=== PATIENT | female | born 1945 | race Caucasian/White ===

== ENCOUNTER → 2018-01-13 11:59 | Outpatient (CLI) | payer MEDICARE, OTHER, SELFPAY ==
--- NOTE | 2018-01-13 | DI.RAD.S_ITS ---
PROCEDURE: XR FOOT RT MIN 3V INDICATIONS: RIGHT FOREFOOT PAIN AFTER TRAUMA TECHNIQUE: 3 views of the foot were acquired. COMPARISON: [facility], CR, FOOT 3V RIGHT, 11/30/2011, 15:44. [facility], CR, FOOT 3V RIGHT, 10/22/2014, 12:52. [facility], CR, XR FOOT 3VW RT, 01/25/2015, 10:21. FINDINGS: Bones: On AP view, there is slight angulation deformity and underlying increased bone density at the medial neck of the third metatarsal, suspect for impaction injury. No other fractures or dislocations. No suspicious bony lesions. Mild joint space narrowing at the first tarsometatarsal and metatarsal phalangeal joints, unchanged. Soft tissues: No tibiotalar joint effusion. Achilles tendon appears normal. IMPRESSION: Possible impacted fracture third metatarsal neck for clinical correlation. Dictated by: Jean Paul Cordoba M.D. on 01/13/2018 at 13:04 Approved by: Jean Paul Cordoba M.D. on 01/13/2018 at 13:09
== END ==
PROVIDERS: Family Provider Family Medicine; PCP Family Medicine; Visit Provider Family Medicine
DX: M79.671 Pain in right foot (principal)
CPT/HCPCS: 73630

== ENCOUNTER → 2018-05-24 13:42 | Outpatient (CLI) | payer MEDICARE, OTHER, SELFPAY ==
--- NOTE | 2018-05-24 | DI.RAD.S_ITS ---
This blank DEXA report has been sent in error by the PACS system. The correct and complete report will be forthcoming in 1-2 days. Thank you for your patience and understanding. Dictated by: Rickie Nguyen M.D. on 05/24/2018 at 14:58 Approved by: Rickie Nguyen M.D. on 05/24/2018 at 14:58
== END ==
PROVIDERS: Family Provider Family Medicine; PCP Family Medicine; Visit Provider Family Medicine
DX: Z13.820 Encounter for screening for osteoporosis (principal); M81.0 Age-related osteoporosis without current pathological fracture; Z78.0 Asymptomatic menopausal state; E07.9 Disorder of thyroid, unspecified; Z82.62 Family history of osteoporosis
CPT/HCPCS: 77080

== ENCOUNTER → 2018-07-08 18:32 | Outpatient (REF) | payer MEDICARE, OTHER, SELFPAY | LOC: LAB 18:32 | PROVIDERS: Family Provider Family Medicine; PCP Family Medicine; Visit Provider Physician Assistant | DX: Z48.817 Encounter for surgical aftercare following surgery on the skin and subcutaneous tissue (principal) | CPT/HCPCS: 87070; 87075; 87205 ==

== ENCOUNTER → 2018-08-05 13:24 | Outpatient (CLI) | payer MEDICARE, OTHER, SELFPAY ==
--- NOTE | 2018-08-05 | DI.MG.S_ITS ---
BILATERAL DIGITAL SCREENING MAMMOGRAM 3D/2D WITH CAD: 08/05/2018 CLINICAL: Routine screening. Comparison is made to exams dated: 05/28/2017 mammogram, 04/30/2016 mammogram, and 04/08/2015 mammogram - [facility]. The tissue of both breasts is extremely dense, which lowers the sensitivity of mammography. Current study was also evaluated with a Computer Aided Detection (CAD) system. There are benign calcifications in the left breast. No significant masses, calcifications, or other findings are seen in either breast. There has been no significant interval change. IMPRESSION: There is no mammographic evidence of malignancy. A 1 year screening mammogram is recommended. This exam was interpreted at Station ID: [id number]. NOTE: For mammograms, a report in lay terms will be sent to the patient. Approximately 15% of breast malignancies will not be visualized mammographically. In the management of a palpable breast mass, a negative mammogram must not discourage biopsy of a clinically suspicious lesion. Electronically Signed By: Piotr esparza/charanjit:08/05/2018 15:56:39 letter sent: Normal Exam ACR BI-RADS Category 2: Benign Finding(s) 3342F
== END ==
PROVIDERS: PCP Family Medicine; Visit Provider Family Medicine
DX: Z12.31 Encounter for screening mammogram for malignant neoplasm of breast (principal)
CPT/HCPCS: 77063; 77067

== ENCOUNTER → 2018-12-19 11:49 | Outpatient (CLI) | payer MEDICARE, OTHER, SELFPAY ==
--- NOTE | 2018-12-19 | DI.US.S_ITS ---
PROCEDURE: US THYROID INDICATIONS: NONTOXIC MULTINODULAR GOITER TECHNIQUE: Real-time scanning was performed of the thyroid gland, with image documentation. COMPARISON: [facility], US, THYROID, 10/09/2015, 16:41. FINDINGS: Right: Right thyroidectomy. Right thyroid bed appears grossly normal. Left: Thyroid lobe measures 3.3 x 1.0 x 1.2 cm, and is homogenous in echotexture. Isthmus: 2.0 mm thick. Nodule number: 1 Location: Left mid Size: Unchanged at 0.3 x 0.2 x 0.4 cm. Composition: Cystic Echogenicity: Anechoic Shape: wider than tall. Margins: Smooth Echogenic foci: Comet tail artifact. Total points: 0 ACR TI-RADS category: Nodule number: 2 Location: Left mid lateral Size: Unchanged at 0.3 x 0.3 x 0.5 cm. Composition: Cystic Echogenicity: Anechoic Shape: wider than tall. 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 ACR TI-RADS definitions and recommendations: TI-RADS 1 (benign): 0 points. FNA not needed. TI-RADS 2 (not suspicious): 2 points. FNA not needed. TI-RADS 3 (mildly suspicious): 3 points. * FNA if 2.5 cm or larger, follow up if 1.5 cm or larger (at 1, 3, and 5 years). TI-RADS 4 (moderately suspicious): 4-6 points. * FNA if 1.5 cm or larger, follow up if 1 cm or larger (at 1, 2, 3, and 5 years). TI-RADS 5 (highly suspicious): 7 points or more. * FNA if 1 cm or larger, follow up if 0.5 cm or larger (every year for 5 years). Dictated by: Phoenix LEVY Interpreted: Mark Boston MD on 12/19/2018 at 13:06 Approved by: Mark Boston M.D. on 12/19/2018 at 17:17
== END ==
PROVIDERS: PCP Family Medicine; Visit Provider Internal Medicine Endocrinology, Diabetes & Metabolism
DX: E04.2 Nontoxic multinodular goiter (principal)
CPT/HCPCS: 76536

== ENCOUNTER → 2019-07-26 13:12 | Outpatient (CLI) | payer MEDICARE, OTHER, SELFPAY | PROVIDERS: PCP Family Medicine; Referring Provider Family Medicine; Visit Provider Family Medicine | DX: M81.0 Age-related osteoporosis without current pathological fracture (principal); Z78.0 Asymptomatic menopausal state; E07.9 Disorder of thyroid, unspecified; Z82.62 Family history of osteoporosis | CPT/HCPCS: 77080 ==

== ENCOUNTER → 2019-12-12 10:49 | Outpatient (CLI) | payer MEDICARE, OTHER, SELFPAY ==
--- NOTE | 2019-12-12 | DI.MG.S_ITS ---
BILATERAL DIGITAL SCREENING MAMMOGRAM 3D/2D WITH CAD: 12/12/2019 CLINICAL: Routine screening. Comparison is made to exams dated: 08/05/2018 mammogram, 04/30/2016 mammogram, 05/28/2017 mammogram, 04/08/2015 mammogram, 04/05/2014 mammogram, and 12/23/2012 mammogram - [facility]. The tissue of both breasts is extremely dense, which lowers the sensitivity of mammography. Current study was also evaluated with a Computer Aided Detection (CAD) system. There are benign calcifications in the left breast. No significant masses, calcifications, or other findings are seen in either breast. There has been no significant interval change. IMPRESSION: There is no mammographic evidence of malignancy. A 1 year screening mammogram is recommended. This exam was interpreted at Station ID: [id number]. NOTE: For mammograms, a report in lay terms will be sent to the patient. Approximately 15% of breast malignancies will not be visualized mammographically. In the management of a palpable breast mass, a negative mammogram must not discourage biopsy of a clinically suspicious lesion. Electronically Signed By: Boris davis/[email or web address]:12/12/2019 14:12:26 letter sent: Normal Exam ACR BI-RADS Category 2: Benign Finding(s) 3342F
== END ==
PROVIDERS: PCP Family Medicine; Referring Provider Family Medicine; Visit Provider Family Medicine
DX: Z12.31 Encounter for screening mammogram for malignant neoplasm of breast (principal)
CPT/HCPCS: 77063; 77067

== ENCOUNTER → 2020-07-09 12:46 | Outpatient (CLI) | payer MEDICARE, OTHER, SELFPAY ==
--- NOTE | 2020-07-09 12:55 | DI.CT.S_ITS ---
PROCEDURE: CT KIDNEY URETER BLADDER (KUB) INDICATIONS: HEMATURIA TECHNIQUE: Noncontrast 5 mm thick sections acquired from the diaphragms to the symphysis. 5 mm thick coronal and sagittal reformats were then performed. For radiation dose reduction, the following was used: automated exposure control, adjustment of mA and/or kV according to patient size. COMPARISON: None. FINDINGS: Image quality: Study is limited secondary to lack of intravenous and oral contrast as well as a paucity of intraperitoneal fat resulting in close apposition of soft tissue structures making anatomic delineation difficult. Lung bases: Lung bases are clear. Heart size is normal. Urinary system: Both kidneys are normal in size. No kidney stones. No hydronephrosis or perinephric fat stranding. Both ureters are difficult to visualize. No hydroureter noted. Bladder wall thickness is normal; no calcified bladder stones. Other solid organs: Liver is normal in size. Gallbladder is not definitively visualized and may be decompressed versus surgically absent. Pancreas is normal in contours. Spleen is normal in size. No adrenal nodules. Peritoneum and bowel: Unenhanced bowel loops are moderately decompressed and difficult to delineate within the lower abdomen and pelvis. Moderate amount of fecal material seen throughout the imaged colon and rectum. No evidence for bowel obstruction. Small amount of free fluid noted adjacent to the liver with trace amount of the pelvis. Nodes and vessels: There is a prominent retroperitoneal lymph node seen to the left of the aorta just distal to the origins of the bilateral renal vasculature. Aorta and inferior vena cava are normal in caliber. Scattered atherosclerotic calcifications of the abdominal aorta and iliac vessels without aneurysmal dilatation. Abdominal wall: No ventral hernias. Pelvis: Trace amount of pelvic free fluid. No inguinal hernias. No definite pelvice adenopathy. There is heterogeneous, ill-defined soft tissue density in the lower pelvis which is difficult to delineate given limitations described above. A uterus is not definitively visualized. Bones: No suspicious bony lesions. No acute vertebral body compression fractures. Moderate multilevel spondylitic changes seen throughout the imaged spine but most severe in the lower thoracic and thoracolumbar junction. IMPRESSION: 1. No evidence for obstructive uropathy or urolithiasis. 2. Heterogeneous, ill-defined soft tissue density within the pelvis which is difficult to delineate secondary to lack of intravenous contrast, oral contrast, and paucity of intraperitoneal fat. Findings may represent multiple decompressed loops of bowel that are in apposition to one another with possible pelvic or ovarian mass not completely excluded. The uterus is not definitively visualized within this region. Recommend correlation with past surgical history for hysterectomy. Given presence of a nonspecific, enlarged retroperitoneal lymph node and abdominal free fluid, consider further characterization with pelvic ultrasound. 3. Other chronic findings as above. Dictated by: Shiraz Carreon M.D. on 07/09/2020 at 16:50 Approved by: Shiraz Carreon M.D. on 07/09/2020 at 17:06
== END ==
PROVIDERS: PCP Family Medicine; Referring Provider Family Medicine; Visit Provider Family Medicine
DX: R31.9 Hematuria, unspecified (principal); R10.9 Unspecified abdominal pain; R59.0 Localized enlarged lymph nodes
CPT/HCPCS: 74176

== ENCOUNTER → 2020-07-12 12:43 | Outpatient (CLI) | payer MEDICARE, OTHER, SELFPAY ==
--- NOTE | 2020-07-12 | DI.US.S_ITS ---
PROCEDURE: US PELVIC COMPLETE INDICATIONS: Intra-abdominal and pelvic swelling, mass and lump, unspecif TECHNIQUE: Real-time scanning was performed of the pelvic organs, with image documentation. Additional endovaginal scanning was necessary due to incomplete visualization of the adnexal and endometrial structures by transabdominal scanning. COMPARISON: None. FINDINGS: Uterus: Uterus is normal in size at 2.3 x 3.2 x 5.1 cm, retroverted. The endometrium measures 5.3 mm in combined thickness. Ovaries: Normal appearing ovaries without evidence of torsion. The right ovary measures up to 1.9 cm and the left measures up to 2.4 cm. Other: No pathologic free abdominal or pelvic fluid. IMPRESSION: Patient declined transvaginal scanning. Retroverted uterus, no endometrial lining abnormality is seen. Ovaries visualized appear normal. No evidence of torsion. Somewhat limited evaluation of the pelvis due to overlying bowel gas. Follow-up by pelvic MRI with contrast would be recommended if clinical concerns persist. Dictated by: Mark Boston M.D. on 07/12/2020 at 13:48 Approved by: Mark Boston M.D. on 07/12/2020 at 13:50
== END ==
PROVIDERS: PCP Family Medicine; Referring Provider Family Medicine; Visit Provider Family Medicine
DX: R19.00 Intra-abdominal and pelvic swelling, mass and lump, unspecified site (principal); N85.4 Malposition of uterus
CPT/HCPCS: 76856

== ENCOUNTER → 2020-08-20 09:38 | Outpatient (CLI) | payer MEDICARE, OTHER, SELFPAY ==
--- NOTE | 2020-08-20 09:39 | DI.CT.S_ITS ---
PROCEDURE: CT ABDOMEN PELVIS W CON INDICATIONS: Unspecified abdominal pain TECHNIQUE: After the administration of oral and intravenous contrast, 5 mm thick sections acquired from the diaphragms to the symphysis. 5 mm thick coronal and sagittal reformats were performed. For radiation dose reduction, the following was used: automated exposure control, adjustment of mA and/or kV according to patient size. COMPARISON: [facility], CT, CT KIDNEY URETER BLADDER (KUB), 07/09/2020, 12:57. FINDINGS: Image quality: Excellent. ABDOMEN: Lung bases: Lung bases are clear. Heart size is normal. Solid organs: Liver is normal in size and enhancement. A probable normal gallbladder is seen. Biliary system is non-dilated. Pancreas enhances normally. Spleen is normal in size and enhancement. No adrenal nodules. Kidneys are normal in size and enhancement, without hydronephrosis. Peritoneum and bowel: Stomach, and small bowel are unremarkable. There is diffuse thickening of the wall of the rectum and sigmoid. There is a large amount of fecal debris more proximally. Nodes and vessels: No retroperitoneal or mesenteric adenopathy. Shotty periaortic lymph nodes. Aorta and inferior vena cava are normal in caliber. Miscellaneous: No ventral hernias. PELVIS: Genitourinary: Bladder wall thickness is normal. Miscellaneous: No inguinal hernias or adenopathy. Uterus is diffusely atrophied, retroverted. Bones: No suspicious bony lesions. No vertebral body compression fractures. At least moderate bilateral hip degenerative arthritis. IMPRESSION: 1. Uterus is diffusely atrophied. 2. Diffuse wall thickening of the sigmoid and rectum, of uncertain etiology. Consider infectious versus inflammatory colitis. Dictated by: oBbby Miller M.D. on 08/20/2020 at 11:38 Approved by: Bobby Miller M.D. on 08/20/2020 at 11:47
== END ==
PROVIDERS: PCP Family Medicine; Referring Provider Family Medicine; Visit Provider Family Medicine
DX: R19.00 Intra-abdominal and pelvic swelling, mass and lump, unspecified site (principal); N85.8 Other specified noninflammatory disorders of uterus; R31.21 Asymptomatic microscopic hematuria; R10.9 Unspecified abdominal pain; M16.0 Bilateral primary osteoarthritis of hip
CPT/HCPCS: 74177; Q9967

== ENCOUNTER → 2020-09-16 09:55 | Outpatient (CLI) | payer MEDICARE, OTHER, SELFPAY ==
[2020-09-16 17:54] LABS: COVID19 -Nasal RAPID Negative (Negative)
== END ==
PROVIDERS: PCP Family Medicine; Visit Provider Surgery
DX: Z20.822 Contact with and (suspected) exposure to COVID-19 (principal)
CPT/HCPCS: 87635; C9803

== ENCOUNTER 2020-09-17 12:08 | Day surgery (SDC) | payer MEDICARE, OTHER, SELFPAY ==
--- NOTE | 2020-09-17 | PATH_ITS ---
[facility] Accession Number: [id number] . 01 Material submitted: . rectum - RECTAL MUCOSA RANDOM . 02 Diagnosis: Rectum, Random Biopsies: Rectal mucosa with no diagnostic abnormality. Negative for active, chronic and microscopic colitis. Negative for dysplasia and malignancy. MRV 09/20/2020 1233 Local . 02 Electronically signed: . Sara Rausch MD, Pathologist NPI- [id number] . 01 Gross description: . RECTAL MUCOSA RANDOM: Received in formalin is 1 fragment(s) of miller, soft tissue measuring 0.1 x 0.1 x 0.1 cm submitted entirely in 1 cassette(s) /YOLANDA 09/18/2020 2153 Local . 02 Pathologist provided ICD-10: K62.89 . 02 CPT . 366839 Performed at: 01 [facility] [address] [id number] MD Piotr Bar MD Phone: [phone] Performed at: 02 [facility] [address] [place], [place] [id number] MD Sara Rausch MD Phone: [phone]
[2020-09-17 12:38] VITALS: BP 109/59; PULSE 67; RESP 12; TEMP 36.8; O2SAT 98; BMI 21.4
[2020-09-17] MEDS: SODIUM CHLORIDE 0.9% 1,000 ML 200 ML IV ×2 (12:38→13:30)
--- NOTE | 2020-09-17 12:58 | PM.PREOP ---
Pre-operative Note COVID-19 COVID-19 status: Negative Result date/Date tested (Pos, Neg/Pending): 09/13/20 Interval Note History & Physical reviewed/Exam performed by Physician: Yes Changes to H&P: No ASA Class (for procedural sedation): II
[2020-09-17] MEDS: fentaNYL 250 MCG/5 ML INJ IV (13:32)
[2020-09-17] MEDS: MIDAZOLAM 5 MG/5 ML VIAL IV (13:32)
--- NOTE | 2020-09-17 13:34 | P.OP.ENDO_ITS ---
Operative Date/Time/Diagnoses Date of procedure: 09/17/20 Time of procedure: 13:34 Pre-op diagnosis: Abnormal CT scan Post-op diagnosis: other (Very tortuous colon with many folds of mucosa, but no neoplastic, infectious, or ischemic appearance.) Procedure & Clinicians Study performed: Colonoscopy Procedural sedation performed by the endoscopist Random biopsies of rectosigmoid colon with standard forceps Same procedure as scheduled: Yes Indications: This patient had a CT scan for abdominal pain, which was read as thickening of the rectum and sigmoid colon. Surgeon: Karolina Coronel Procedure Notes SCOAP/Timeout: Performed Procedure in detail: The patient was brought to the room and placed in left lateral decubitus position with all bony prominences padded. A time-out was performed and then the patient was given procedural sedation starting with 2 mg of Versed and [100] mcg of fentanyl. A total of 5 mg of Versed and 175 micro g of fentanyl were given for the entire procedure. Vitals were monitored throughout the procedure and remained stable. Once adequately sedated, the procedure was begun. A rectal exam was performed revealing [no abnormalities]. The colonoscope was then introduced to the rectum and advanced to the cecum in the usual fashion. The colon was very tortuous, with many mucosal folds. Multiple maneuvers were required in order to reach the cecum safely including using the stiffener, and anterior pressure on the abdominal wall. []The cecum was identified by the appendiceal orifice, the mucosal tri-fold, and the ileocecal valve. The scope was then retracted while rotating side to side and examining each mucosal fold. No abnormalities were seen in the colon, other than in extreme tortuosity with many mucosal folds. When the colon was distended with air, there was no sign of abnormal thickening, ischemia, or colitis. Reason biopsies were taken of the rectus sigmoid colon to verify there was no microscopic colitis present. These were sent to pathology. [] At the conclusion of the proceduresmall grade 1-2 internal hemorrhoids without stigmata of bleeding were seen. The scope was then withdrawn from the rectum the procedure was concluded. The patient tolerated the procedure well and was transferred to the PACU in stable condition. Scope withdrawal time: 10 Sedation minutes: 30 Findings: other findings (Very tortuous colon with many mucosal folds, normal variant) Specimen(s): other (Random biopsies of rectosigmoid colon) Complications: none Impression: Very tortuous colon with many mucosal folds, a normal variant. No signs of abnormal thickening of the rectum or sigmoid colon. Specifically no signs of neoplasm, ischemia, or infection. Post-procedure Recommendations: Colonscopy in 10 years (If patient is healthy enough for col onoscopy at that time) and Other recommendation (We will send biopsy results to the patient, and call her if anything concerning is found.) Follow up: as needed Disposition: PACU
[2020-09-17] MEDS: ONDANSETRON 4 MG/2 ML INJ IV (13:36)
[2020-09-17 13:40] VITALS: BP 109/49; PULSE 60; RESP 14; TEMP 36.6; O2SAT 99
[2020-09-17 13:45] VITALS: BP 100/48; PULSE 62; RESP 16; O2SAT 99
[2020-09-17 13:50] VITALS: BP 107/46; PULSE 60; RESP 12; O2SAT 99
[2020-09-17 13:55] VITALS: BP 116/53; PULSE 70; RESP 12; O2SAT 99
[2020-09-17 14:00] VITALS: BP 104/53; PULSE 63; RESP 12; TEMP 36.7; O2SAT 99
== END 2020-09-17 14:18 | disposition home or self-care (01) ==
PROVIDERS: PCP Family Medicine; Referring Provider Surgery; Visit Provider Surgery
PROC: 0DJD8ZZ Inspection of Lower Intestinal Tract, Via Natural or Artificial Opening Endoscopic (ICD-10-PCS; CPT 45378; principal; 2020-09-17 13:00)
DX: K64.1 Second degree hemorrhoids (principal); E03.9 Hypothyroidism, unspecified
CPT/HCPCS: 45380; 99152; 99153; J2250; J2405; J3010

== ENCOUNTER → 2021-01-20 11:17 | Outpatient (CLI) | payer MEDICARE, OTHER, SELFPAY ==
--- NOTE | 2021-01-20 | DI.MG.S_ITS ---
BILATERAL DIGITAL SCREENING MAMMOGRAM 3D/2D WITH CAD: 01/20/2021 CLINICAL: Routine screening. Comparison is made to exams dated: 12/12/2019 mammogram, 08/05/2018 mammogram, 05/28/2017 mammogram, and 04/30/2016 mammogram - [facility]. The tissue of both breasts is extremely dense, which lowers the sensitivity of mammography. Current study was also evaluated with a Computer Aided Detection (CAD) system. There are benign calcifications in the left breast. No significant masses, calcifications, or other findings are seen in either breast. There has been no significant interval change. IMPRESSION: BENIGN There is no mammographic evidence of malignancy. A 1 year screening mammogram is recommended. This exam was interpreted at Station ID: [id number]. NOTE: For mammograms, a report in lay terms will be sent to the patient. Approximately 15% of breast malignancies will not be visualized mammographically. In the management of a palpable breast mass, a negative mammogram must not discourage biopsy of a clinically suspicious lesion. Electronically Signed By: Shiraz peters/charanjit:01/20/2021 12:25:44 letter sent: Normal Exam ACR BI-RADS Category 2: Benign Finding(s) 3342F
== END ==
PROVIDERS: PCP Family Medicine; Referring Provider Family Medicine; Visit Provider Family Medicine
DX: Z12.31 Encounter for screening mammogram for malignant neoplasm of breast (principal)
CPT/HCPCS: 77063; 77067

== ENCOUNTER → 2021-08-06 14:05 | Outpatient (CLI) | payer MEDICARE, OTHER, SELFPAY ==
--- NOTE | 2021-08-06 14:06 | DI.RAD.S_ITS ---
PROCEDURE: XR FOOT RT MIN 3V INDICATIONS: BILATERAL FOOT PAIN TECHNIQUE: 3 views of the foot were acquired. COMPARISON: [facility], , XR FOOT RT MIN 3V, 01/13/2018, 11:57. FINDINGS: Bones: No acute fractures or dislocations. Osteoarthritic changes are noted throughout right foot more prominent in right great toe and talonavicular joint. No suspicious bony lesions. Soft tissues: No tibiotalar joint effusion. Achilles tendon appears normal. IMPRESSION: Osteoarthritis throughout right foot. No acute fracture or dislocation. No suspicious intraosseous lesion. Dictated by: Rickie Nguyen M.D. on 08/06/2021 at 14:36 Approved by: Rickie Nguyen M.D. on 08/06/2021 at 14:37
--- NOTE | 2021-08-06 14:06 | DI.RAD.S_ITS ---
PROCEDURE: XR FOOT LT MIN 3V INDICATIONS: BILATERAL FOOT PAIN TECHNIQUE: 3 views of the foot were acquired. COMPARISON: [facility], CR, XR FOOT RT MIN 3V, 01/13/2018, 11:57. FINDINGS: Bones: No fractures or dislocations. Mild left hallux valgus is seen. Mild to moderate left foot joint osteoarthritic changes are seen most prominent at 1st MTP joint and 1st interphalangeal joint. No suspicious bony lesions. Soft tissues: No tibiotalar joint effusion. Achilles tendon appears normal. IMPRESSION: Ujik-ke-ixasvnfs left foot joint osteoarthritis and mild left-sided hallux valgus. No fracture or dislocation. Dictated by: Rickie Nguyen M.D. on 08/06/2021 at 14:37 Approved by: Rickie Nguyen M.D. on 08/06/2021 at 14:40
== END ==
PROVIDERS: PCP Family Medicine; Referring Provider Family Medicine; Visit Provider Family Medicine
DX: M19.072 Primary osteoarthritis, left ankle and foot (principal); M19.071 Primary osteoarthritis, right ankle and foot; M20.12 Hallux valgus (acquired), left foot; M79.672 Pain in left foot; M79.671 Pain in right foot
CPT/HCPCS: 73630

== ENCOUNTER → 2021-09-05 10:51 | Outpatient (CLI) | payer MEDICARE, OTHER, SELFPAY | PROVIDERS: PCP Family Medicine; Referring Provider Family Medicine; Visit Provider Family Medicine | DX: Z78.0 Asymptomatic menopausal state (principal); M81.0 Age-related osteoporosis without current pathological fracture | CPT/HCPCS: 77080 ==

== ENCOUNTER → 2021-11-12 16:02 | Outpatient (CLI) | payer MEDICARE, OTHER, SELFPAY ==
--- NOTE | 2021-11-12 16:05 | DI.RAD.S_ITS ---
PROCEDURE: XR CHEST 2V INDICATIONS: Acute cough TECHNIQUE: 2 views of the chest were acquired. COMPARISON: [facility], , CHEST 1 VIEW, 04/20/2016, 14:00. FINDINGS: Surgical changes and devices: None. Lungs and pleura: Lungs are clear. No pleural effusions or pneumothorax. Mediastinum: Mediastinal contours are normal. Heart size is normal. Bones and chest wall: No suspicious bony abnormalities. Soft tissues appear unremarkable. IMPRESSION: No acute cardiopulmonary disease. Dictated by: Phoenix Stone [facility] Interpreted: Rickie Nguyen MD on 11/12/2021 at 16:33 Transcribed by: THOMAS on 11/12/2021 at 16:34 Approved by: Rickie Nguyen M.D. on 11/12/2021 at 17:33
== END ==
PROVIDERS: PCP Family Medicine; Referring Provider Internal Medicine; Visit Provider Internal Medicine
DX: R05.1 Acute cough (principal)
CPT/HCPCS: 71046

== ENCOUNTER → 2022-03-05 14:05 | Outpatient (CLI) | payer MEDICARE, OTHER, SELFPAY ==
--- NOTE | 2022-03-05 14:07 | DI.MG.S_ITS ---
BILATERAL DIGITAL SCREENING MAMMOGRAM 3D/2D WITH CAD: 03/05/2022 CLINICAL: Routine screening. Comparison is made to exams dated: 01/20/2021 mammogram, 12/12/2019 mammogram, and 08/05/2018 mammogram - [facility]. Both breasts are extremely dense, which lowers the sensitivity of mammography (category d />75% glandular tissue). Current study was also evaluated with a Computer Aided Detection (CAD) system. There are benign calcifications in the left breast. No significant masses, calcifications, or other findings are seen in either breast. There has been no significant interval change. IMPRESSION: BENIGN There is no mammographic evidence of malignancy. A 1 year screening mammogram is recommended. Based on the Tyrer Cuzick model (a risk assessment model) the patient's lifetime risk is 10.4% and her 10 year risk is 9.4%. According to the ACR, ACS, and NCCN guidelines, an annual breast MRI exam along with mammogram is recommended if the patient's lifetime risk is 20% or greater. This exam was interpreted at Station ID: [id number]. NOTE: For mammograms, a report in lay terms will be sent to the patient. Approximately 15% of breast malignancies will not be visualized mammographically. In the management of a palpable breast mass, a negative mammogram must not discourage biopsy of a clinically suspicious lesion. Electronically Signed By: Shiraz peters/charanjit:03/05/2022 17:06:16 letter sent: Normal Exam ACR BI-RADS Category 2: Benign Finding(s) 3342F
== END ==
PROVIDERS: PCP Family Medicine; Referring Provider Family Medicine; Visit Provider Family Medicine
DX: Z12.31 Encounter for screening mammogram for malignant neoplasm of breast (principal)
CPT/HCPCS: 77063; 77067

== ENCOUNTER → 2022-07-13 20:02 | Outpatient (ROUT) | payer MEDICARE, OTHER, SELFPAY | PROVIDERS: PCP Family Medicine; Visit Provider Family Medicine | DX: B37.32 Chronic candidiasis of vulva and vagina (principal) | CPT/HCPCS: 87070; 87077; 87205 ==

== ENCOUNTER → 2022-09-14 12:53 | Outpatient (CLI) | payer MEDICARE, OTHER, SELFPAY ==
[2022-09-15 13:53] LABS: Candida species Negative (Negative); Gardnerella vaginalis Negative (Negative); Trichomoas vaginalis Negative (Negative)
== END ==
PROVIDERS: PCP Family Medicine; Visit Provider Physician Assistant Medical
DX: N89.8 Other specified noninflammatory disorders of vagina (principal)
CPT/HCPCS: 87480; 87510; 87660

== ENCOUNTER → 2022-10-29 13:59 | Outpatient (CLI) | payer MEDICARE, OTHER, SELFPAY ==
[2022-10-31 13:43] LABS: Candida species Negative (Negative); Gardnerella vaginalis Negative (Negative); Trichomoas vaginalis Negative (Negative)
== END ==
PROVIDERS: PCP Family Medicine; Visit Provider Physician Assistant Medical
DX: N89.8 Other specified noninflammatory disorders of vagina (principal)
CPT/HCPCS: 87480; 87510; 87660

== ENCOUNTER → 2022-12-26 11:50 | Outpatient (CLI) | payer MEDICARE, OTHER, SELFPAY | PROVIDERS: PCP Family Medicine; Visit Provider Physician Assistant | DX: N39.0 Urinary tract infection, site not specified (principal); N89.8 Other specified noninflammatory disorders of vagina | CPT/HCPCS: 87086; 87210 ==

== ENCOUNTER → 2023-04-13 11:31 | Outpatient (CLI) | payer MEDICARE, OTHER, SELFPAY ==
--- NOTE | 2023-04-13 | DI.MG.S_ITS ---
BILATERAL DIGITAL SCREENING MAMMOGRAM 3D/2D WITH CAD: 04/13/2023 CLINICAL: Routine screening. Comparison is made to exams dated: 03/05/2022 mammogram, 01/20/2021 mammogram, and 12/12/2019 mammogram - [facility]. Both breasts are extremely dense, which lowers the sensitivity of mammography (category d />75% glandular tissue). Current study was also evaluated with a Computer Aided Detection (CAD) system. There is an oval focal asymmetry in the right breast at 12 o'clock middle depth. This is more prominent. There is architectural distortion associated with the focal asymmetry. No other significant masses, calcifications, or other findings are seen in either breast. IMPRESSION: INCOMPLETE: NEEDS ADDITIONAL IMAGING EVALUATION The oval focal asymmetry in the right breast is indeterminate. Additional views with possible ultrasound are recommended. Based on the Tyrer Cuzick model (a risk assessment model) the patient's lifetime risk is 9.6% and her 10 year risk is 9.6%. According to the ACR, ACS, and NCCN guidelines, an annual breast MRI exam along with mammogram is recommended if the patient's lifetime risk is 20% or greater. This exam was interpreted at Station ID: [id number]. NOTE: For mammograms, a report in lay terms will be sent to the patient. Approximately 15% of breast malignancies will not be visualized mammographically. In the management of a palpable breast mass, a negative mammogram must not discourage biopsy of a clinically suspicious lesion. Electronically Signed By: Alf martines/charanjit:04/13/2023 13:36:44 letter sent: Additional Imaging Needed ACR BI-RADS Category 0: Incomplete 3340F
== END ==
PROVIDERS: PCP Family Medicine; Referring Provider Family Medicine; Visit Provider Family Medicine
DX: Z12.31 Encounter for screening mammogram for malignant neoplasm of breast (principal)
CPT/HCPCS: 77063; 77067

== ENCOUNTER → 2023-05-04 10:23 | Outpatient (CLI) | payer MEDICARE, OTHER, SELFPAY ==
--- NOTE | 2023-05-04 | DI.MG.S_ITS ---
UNILATERAL RIGHT DIGITAL DIAGNOSTIC MAMMOGRAM 3D/2D WITH ADDITIONAL VIEWS: 05/04/2023 CLINICAL: Additional evaluation requested from prior study. Comparison is made to exams dated: 04/13/2023 mammogram, 03/05/2022 mammogram, and 01/20/2021 mammogram - [facility]. The right breast is extremely dense, which lowers the sensitivity of mammography (category d />75% glandular tissue). The benign oval focal asymmetry in the right breast at 12 o'clock middle depth is no longer seen. This is not seen in additional views. There is architectural distortion associated with the focal asymmetry. No other significant masses or calcifications are seen in the breast. IMPRESSION: BENIGN There is no mammographic evidence of malignancy. Return to annual mammogram screening schedule is recommended. Based on the Tyrer Cuzick model (a risk assessment model) the patient's lifetime risk is 9.6% and her 10 year risk is 9.6%. According to the ACR, ACS, and NCCN guidelines, an annual breast MRI exam along with mammogram is recommended if the patient's lifetime risk is 20% or greater. This exam was interpreted at Station ID: [id number]. NOTE: For mammograms, a report in lay terms will be sent to the patient. Approximately 15% of breast malignancies will not be visualized mammographically. In the management of a palpable breast mass, a negative mammogram must not discourage biopsy of a clinically suspicious lesion. Electronically Signed By: Zain Gale M.D. acr/:05/04/2023 10:52:10 letter sent: Normal Exam ACR BI-RADS Category 2: Benign Finding(s) [id number]
== END ==
PROVIDERS: PCP Family Medicine; Referring Provider Family Medicine; Visit Provider Family Medicine
DX: R92.8 Other abnormal and inconclusive findings on diagnostic imaging of breast (principal)
CPT/HCPCS: 77065; G0279

== ENCOUNTER → 2023-05-11 09:50 | Outpatient (CLI) | payer MEDICARE, OTHER, SELFPAY ==
--- NOTE | 2023-05-11 | DI.NM.S_ITS ---
PROCEDURE: NM SANDRA PERF SPECT REST & STR Rest and exercise myocardial perfusion SPECT with gated imaging and ejection fraction RADIOPHARMACEUTICAL: 9.7 mCi Tc-99m sestamibi IV at rest and 25.2 mCi Tc-99m sestamibi IV at peak exercise. A one day-protocol was performed. INDICATIONS: Other chest pain TECHNIQUE: Radiopharmaceutical was injected at peak stress test, and also at rest. SPECT images were obtained. SPECT myocardial perfusion images were displayed in short axis, horizontal long axis, and vertical long axis views. Gated images were reviewed using MimetasQUANT software. COMPARISON: None. CARDIAC STRESS: A standard Shahid treadmill exercise tolerance test was performed by the patient under the supervision of an attending staff. The patient exercised for 9 minutes and 0 seconds; functional aerobic impairment (CELESTE) is -67% (10.1 METs). Hemodynamic data: There is normal blood pressure and heart rate response to exercise stress. Patient achieved 92% of maximum predicted heart rate at peak exercise. Symptoms: Patient denied chest pain during exercise. EKG: Resting ECG showed sinus rhythm with no ST changes. There were very mild horizontal ST depressions in the inferior and anterolateral leads during recovery; no ectopy. FINDINGS: Raw data: There is good myocardial labeling by radiotracer. No significant motion artifacts. Left ventricle function: Gated images demonstrate normal left ventricle wall thickening. No segmental wall motion abnormality. No transient ischemic dilation; TID is 1.12 (normal less than 1.3). The left ventricle resting end-diastolic volume is 72 mL. Left ventricle stress ejection fraction is 84%; normal values are above 45%. Myocardial perfusion: There is normal distribution of activity in the left and right ventricular myocardium. No fixed or reversible perfusion defects. IMPRESSION: Low risk, normal treadmill nuclear stress test from inducible ischemia standpoint. 1) No perfusion evidence of ischemia or infarction. 2) Normal left ventricular size, wall motion, and systolic function (EF post stress 84%). 3) Very mild horizontal ST depressions in the inferior and anterolateral leads during recovery. These changes are non-diagnostic in the setting of reassuring perfusion images. 4) No angina during the study. 5) Outstanding exercise tolerance (10.1METs, CELESTE -67%). Target heart rate achieved. Appropriate BP response to exercise. 6) No prior nuclear stress test available for comparison. Dictated by: Hesham Avery MD on 05/11/2023 at 16:49 Approved by: Hesham Avery MD on 05/11/2023 at 16:52
--- NOTE | 2023-05-11 | DI.ECHO.S_ITS ---
[facility] +---------+ : : [address] : [address] [address] : : : : [id number] : : : : Phone: [phone]+ Echocardiogram Report + + :Name: NEEL QUIROGA Study Date: 05/11/2023 Height: 64 in : :[facility] ReadingLocation: Weight: 118 lb : : Gender: Female BSA: 1.6 m2 : :: 1945 Age: 77 yrs BP: 120/66 mmHg: :Reason For Study: CHEST PAIN : :Ordering Physician: ARTURO, : :RYANNE Performed By: Renetta Antonio : :Referring: RYANNE MORRIS : + + Interpretation Summary The ejection fraction is estimated to be 60-65%. Diastolic parameters suggest probable normal left ventricular diastolic function and normal filling pressures. The right ventricle is normal in size and function. There is mild mitral regurgitation. There is trace aortic regurgitation. Pulmonary artery pressures cannot be estimated because of the lack of a measurable TR jet velocity but the IVC suggests a CVP of around 8 mmHg. There is a trivial pericardial effusion noted. Procedure: A two-dimensional transthoracic echocardiogram with color flow and Doppler was performed. The study quality was technically adequate. There is no prior echocardiogram noted for this patient. The patient was in sinus rhythm with heart rates between 55-67 bpm during the exam. Left Ventricle: The left ventricle is normal in size and wall thickness. The ejection fraction is estimated to be 60-65%. Diastolic parameters suggest probable normal left ventricular diastolic function and normal filling pressures. Right Ventricle: The right ventricle is normal in size and function. Atria: The left atrial size is normal. Right atrial size is normal. There is no Doppler evidence for an interatrial shunt. Mitral Valve: The mitral valve leaflets appear mildly thickened, but open well. There is mild mitral regurgitation. Aortic Valve: The aortic valve is trileaflet. The aortic valve opens well. There is no aortic valve stenosis. There is trace aortic regurgitation. Tricuspid Valve: The tricuspid valve is normal in structure and function. There is trace tricuspid regurgitation. Pulmonary artery pressures cannot be estimated because of the lack of a measurable TR jet velocity but the IVC suggests a CVP of around 8 mmHg. Pulmonic Valve: The pulmonic valve is not well visualized. There is no pulmonic valvular regurgitation. Great Vessels: The aortic root is normal size. The ascending aorta could not be visualized. The IVC is dilated (diameter is greater than 2.1 cm) yet it collapses greater than 50% with a sniff. This suggests a right atrial pressure of 8 mm Hg. Pericardium/ Pleura There is a trivial pericardial effusion noted. There is no pleural effusion. MMode/2D Measurements & Calculations LVIDd: 4.8 cm LVOT diam: 2.0 cm LVIDs: 3.2 cm Ao root diam: 2.9 cm FS: 31.9 % Ao Arch Diam (Prox Trans): 2.3 cm IVSd: 0.47 cm LVPWd: 0.74 cm LV gonzalez. diameter/BSA (cm/m^2): 3.0 LV sys. diameter/BSA (cm/m^2): 2.1 LA A2 area: 15.1 cm2 RA long axis: 3.9 cm LA A4 area: 10.5 cm2 RA area: 11.6 cm2 LA length (vol): 3.7 cm RA vol: 29.0 ml LA vol: 36.2 ml RA : 18.6 ml/m2 LA vol index: 23.2 ml/m2 IVC diam: 2.5 cm RVD1 (basal): 2.6 cm TAPSE: 2.1 cm Doppler Measurements & Calculations Ao V2 max: 136.8 cm/sec LVOT Max Fabio: 122.3 cm/sec Ao V2 mean: 96.9 cm/sec LV V1 max P.0 mmHg Ao max P.5 mmHg LV V1 VTI: 29.2 cm Ao mean P.2 mmHg ELIZABETH(I,D): 2.6 cm2 Ao V2 VTI: 34.3 cm ELIZABETH(V,D): 2.7 cm2 sev ratio: 0.85 ELIZABETH indexed to BSA (cm^2/m^2): 1.6 MV E max fabio: 87.3 cm/sec TR max fabio: 241.2 cm/sec MV A max fabio: 68.0 cm/sec TR max P.3 mmHg MV E/A: 1.3 PA V2 max: 93.1 cm/sec Med Peak E' Fabio: 11.0 cm/sec PA V2 mean: 62.2 cm/sec E/E' med: 7.9 PA mean P.8 mmHg Lat Peak E' Fabio: 10.0 cm/sec E/E' lat: 8.8 E/e' average: 8.3 MV dec time: 0.22 sec SVLVOT): 87.7 ml Reading Physician:03:38 PM
== END ==
PROVIDERS: PCP Family Medicine; Referring Provider Family Medicine; Visit Provider Family Medicine
DX: I34.0 Nonrheumatic mitral (valve) insufficiency (principal); R07.89 Other chest pain
CPT/HCPCS: 78452; 93017; 93306; A9502

== ENCOUNTER → 2023-09-07 12:48 | Outpatient (CLI) | payer MEDICARE, OTHER, SELFPAY ==
--- NOTE | 2023-09-07 12:49 | DI.RAD.S_ITS ---
Bone Density Report Name: NEEL QUIROGA Age: 78 Sex: Female Ethnicity: White Date of : 1945 Indication: postmenopausal osteoporosis; Referring Provider: RYANNE MORRIS Study: Bone densitometry was performed. Exam Date: September 07, 2023 Accession number: [id number] Bone Density: Region BMD T-score Z-score Classification AP Spine(L1-L4) 0.878 -1.5 0.9 Osteopenia Femoral Neck (Left) 0.506 -3.1 -1.0 Osteoporosis Total Hip (Left) 0.629 -2.6 -0.7 Osteoporosis Femoral Neck (Right) 0.565 -2.6 -0.4 Osteoporosis Total Hip (Right) 0.669 -2.2 -0.4 Osteopenia Total Hip Mean 0.649 -2.4 -0.6 Osteopenia World Health Organization criteria for BMD impression classify patients as: Normal (T-score at or above -1.0), Osteopenia (T-score between -1.0 and -2.5), or Osteoporosis (T-score at or below -2.5). 10-year Fracture Risk: FRAX not reported because: Some T-score for Spine Total or Hip Total or Femoral Neck at or below -2.5 Previous Exams: -- Region Exam Age BMD T-score BMD Change BMD Change Date g/cm2 vs Baseline vs Previous -- AP Spine (L1-L4) 09/07/2023 78 0.878 -1.5 -0.082 (-8.5%)# 0.029 (3.4%)# 09/05/2021 76 0.848 -1.8 -0.111 (-11.5%)# -0.045 (-5.0%)# 07/26/2019 74 0.893 -1.4 -0.066 (-6.8%)* 0.023 (2.6%) 05/24/2018 72 0.871 -1.6 -0.088 (-9.2%)* -0.038 (-4.2%)* 01/07/2016 70 0.909 -1.3 -0.050 (-5.2%)* -0.067 (-6.8%)* 12/27/2009 64 0.976 -0.6 0.016 (1.7%) 0.016 (1.7%) 01/25/2007 61 0.959 -0.8 Total Hip(Left) 09/07/2023 78 0.629 -2.6 -0.162 (-20.5%)# -0.012 (-1.8%)# 09/05/2021 76 0.640 -2.5 -0.150 (-19.0%)# -0.004 (-0.6%)# 07/26/2019 74 0.644 -2.4 -0.146 (-18.5%)* 0.007 (1.0%) 05/24/2018 72 0.638 -2.5 -0.153 (-19.3%)* -0.037 (-5.5%)* 01/07/2016 70 0.675 -2.2 -0.115 (-14.6%)* -0.057 (-7.8%)* 12/27/2009 64 0.732 -1.7 -0.058 (-7.4%)* -0.058 (-7.4%)* 01/25/2007 61 0.790 -1.2 Total Hip(Right) 09/07/2023 78 0.669 -2.2 -0.153 (-18.6%)# 0.000 (0.1%)# 09/05/2021 76 0.668 -2.2 -0.153 (-18.6%)# 0.000 (0.0%)# 07/26/2019 74 0.669 -2.2 -0.153 (-18.6%)* 0.002 (0.3%) 05/24/2018 72 0.667 -2.3 -0.155 (-18.9%)* -0.040 (-5.7%)* 01/07/2016 70 0.707 -1.9 -0.115 (-14.0%)* -0.076 (-9.7%)* 12/27/2009 64 0.782 -1.3 -0.039 (-4.8%)* -0.039 (-4.8%)* 01/25/2007 61 0.821 -1.0 -- *Denotes significance at 95% confidence level, LSC for AP Spine = 0.022 g/cm2, LSC for Total Hip = 0.027 g/cm2 # Denotes dissimilar scan types or analysis methods Impression: The patient has osteoporosis, based on the Left Femoral Neck T-score. No significant bone loss was observed. Discussion: INCREASED RISK OF FRACTURE. BONE DENSITY IS UNDESIRABLY LOW AT ONE OR MORE SKELETAL SITES, CONSISTENT WITH POSTMENOPAUSAL OSTEOPOROSIS. This patient's lowest T-score meets the World Health Organization's (WHO) criteria for osteoporosis at one or more sites (T-score -2.5 or below). In untreated patients, the risk of osteoporotic fracture increases approximately two-fold for each 1.0 SD decrease in T-score. Low bone density is not the only risk factor for fracture; also consider factors such as patient's age, frailty or poor health, risk of falling, risk of injury, previous osteoporotic fracture, family history of osteoporosis, cigarette smoking, low body weight, etc. Not everyone with low bone mineral density has osteoporosis; osteomalacia and other metabolic bone disorders should also be considered. Patients who have osteoporosis should be evaluated for specific diseases and conditions (secondary causes) that may cause or contribute to bone loss. The [place] Association of Clinical Endocrinologists (AACE) and National Osteoporosis Foundation (NOF) recommend pharmacologic intervention for all postmenopausal women whose T-score is in this range. The patient should follow a healthful lifestyle (good nutrition with adequate calcium and vitamin D, and appropriate weight-bearing exercise). Follow-Up: Consider a repeat BMD and Vertebral Fracture Assessment (VFA) exam in 2 years or sooner if medically necessary, to reassess this patient's status. Reported by: JEFF WALSH M.D. on 09/07/2023 1:09:00 PM.
== END ==
LOC: RAD 12:49
PROVIDERS: PCP Family Medicine; Referring Provider Family Medicine; Visit Provider Family Medicine
DX: M81.0 Age-related osteoporosis without current pathological fracture (principal); E03.9 Hypothyroidism, unspecified
CPT/HCPCS: 77080

== ENCOUNTER → 2024-05-15 15:33 | Outpatient (CLI) | payer MEDICARE, OTHER, SELFPAY ==
--- NOTE | 2024-05-15 15:34 | DI.MG.S_ITS ---
BILATERAL DIGITAL SCREENING MAMMOGRAM 3D/2D WITH CAD: 05/15/2024 CLINICAL: Routine screening. Comparison is made to exams dated: 04/13/2023 mammogram, 03/05/2022 mammogram, and 01/20/2021 mammogram - [facility]. The breasts are heterogeneously dense, which may obscure small masses (category c / 51-75% glandular tissue). Current study was also evaluated with a Computer Aided Detection (CAD) system. No significant masses, calcifications, or other findings are seen in either breast. There has been no significant interval change. IMPRESSION: NEGATIVE There is no mammographic evidence of malignancy. A 1 year screening mammogram is recommended. Based on the Tyrer Cuzick model (a risk assessment model) the patient's lifetime risk is 5.9% and her 10 year risk is 0.0%. According to the ACR, ACS, and NCCN guidelines, an annual breast MRI exam along with mammogram is recommended if the patient's lifetime risk is 20% or greater. This exam was interpreted at Station ID: [id number]. NOTE: For mammograms, a report in lay terms will be sent to the patient. Approximately 15% of breast malignancies will not be visualized mammographically. In the management of a palpable breast mass, a negative mammogram must not discourage biopsy of a clinically suspicious lesion. Electronically Signed By: Shiraz peters/charanjit:05/16/2024 07:58:24 letter sent: Normal Exam ACR BI-RADS Category 1: Negative
== END ==
LOC: MAMMO 15:34
PROVIDERS: PCP Family Medicine; Referring Provider Family Medicine; Visit Provider Family Medicine
DX: Z12.31 Encounter for screening mammogram for malignant neoplasm of breast (principal); R92.333 Mammographic heterogeneous density, bilateral breasts
CPT/HCPCS: 77063; 77067

== ENCOUNTER → 2024-10-26 12:48 | Outpatient (CLI) | payer MEDICARE, OTHER, SELFPAY ==
--- NOTE | 2024-10-26 12:52 | DI.RAD.S_ITS ---
PROCEDURE: XR DEXA AXIAL SKELETON INDICATIONS: OSTEOPOROSIS COMPARISON: [facility], , XR DEXA AXIAL SKELETON, 09/07/2023, 13:01. FINDINGS: Lumbar Spine: Bone mineral density 0.923 g/cm2, T score -1.1. There is interval 5.2% increase in total lumbar spine bone mineral density. Left Femoral Neck: Bone mineral density 0.522 g/cm2, T score -2.9. There is interval 3.2% increase in left femoral neck bone mineral density. Left Hip: Bone mineral density 0.640 g/cm2, T score -2.5. There is interval 1.8% increase in total left hip bone mineral density. Fracture Risk Calculation (when applicable): 10-year fracture risk of a major osteoporotic fracture 19 percent and of a hip fracture 7.3 percent. (T score greater or equal to -1.0 to: NORMAL) (T score from -1.1 to -2.4: OSTEOPENIA) (T score less than or equal to -2.5: OSTEOPOROSIS) IMPRESSION: Osteoporosis as above. Follow-up guidelines as follows: Osteoporosis: Consider a repeat DEXA and Vertebral Fracture Assessment (VFA) exam in 2 years or sooner if medically necessary, to reassess this patient's status. Osteopenia: Consider a repeat DEXA in 2-3 years to reassess this patient's status, or if there is a new clinical indication. Normal: Consider a repeat DEXA in 5 years or sooner, or if there is a new clinical indication. All treatment decisions require clinical judgment and consideration of individual patient factors, including patient preferences, comorbidities, previous drug use, risk factors not captured in the FRAX model (e.g., frailty, falls, vitamin D deficiency, increased bone turnover, interval significant decline in bone density ) and possible under- or over-estimation of fracture risk by FRAX. In addition, the NOF Guide recommends that FDA-approved medical therapies be considered in postmenopausal women and men age >= 50 years with a: * Hip or vertebral (clinical or morphometric) fracture * T-score of <=-2.5 at the spine or hip * Ten-year fracture probability by FRAX of >= 3% for hip fracture or >=20% for major osteoporotic fracture. Dictated by: Rickie Nguyen M.D. on 10/26/2024 at 20:45 Approved by: Rickie Nguyen M.D. on 10/26/2024 at 20:50
== END ==
LOC: RAD 12:50
PROVIDERS: PCP Family Medicine; Referring Provider Family Medicine; Visit Provider Family Medicine
DX: M81.0 Age-related osteoporosis without current pathological fracture (principal)
CPT/HCPCS: 77080

== ENCOUNTER → 2024-12-21 11:45 | Outpatient (CLI) | payer MEDICARE, OTHER, SELFPAY ==
--- NOTE | 2024-12-21 11:47 | DI.CT.S_ITS ---
PROCEDURE: CT ABDOMEN PELVIS W CON INDICATIONS: ABNORMAL PAIN TECHNIQUE: After the administration of intravenous contrast, axial sections acquired from the lung bases to the pubic symphysis. Coronal and sagittal reformats were performed. For radiation dose reduction, the following was used: automated exposure control, adjustment of mA and/or kV according to patient size. COMPARISON: [facility], CT, CT ABDOMEN PELVIS W CON, 08/20/2020, 10:27. FINDINGS: Image quality: Diagnostic. Lower Chest: No significant findings. ABDOMEN: Liver: No solid mass. Gallbladder: No radiopaque gallstones or wall thickening. Biliary ducts: No biliary dilation. Pancreas: No ductal dilation. Spleen: Size is within normal limits. Adrenal Glands: No adrenal nodules. Kidneys and Ureters: No hydronephrosis. No solid mass. No complex renal cystic lesion which requires follow up. Stomach and Bowel: Normal colonic caliber, without significant wall thickening. Peritoneum: There is loculated fluid along the right side of the liver measuring 5.4 x 1.6 cm. Ventral Wall: No significant ventral hernia. Abdominal Nodes: No retroperitoneal or mesenteric adenopathy by size criteria. Vessels: Aorta and inferior vena cava are normal in size. PELVIS: Pelvic Organs: The endometrium is thickened, measuring 1.3 cm. Bladder: No bladder wall thickening, accounting for underdistention. Pelvic Nodes: No enlarged lymph nodes. Miscellaneous: No inguinal hernias are seen. Bones: No aggressive osseous abnormality. IMPRESSION: There is a loculated fluid collection along the right side of the liver measuring 5.4 x 1.6 cm. Findings are could represent early pseudomyxoma peritoniti, but would have an atypical appearance. This could also be post inflammatory. Short term follow up (3 months) should be considered to ensure resolution. Thickened endometrium measuring 1.3 cm. Consider tissue sampling as findings are abnormal in the postmenopausal setting. Dictated by: Aydin Arriaga M.D. on 12/21/2024 at 16:57 Approved by: Aydni Arriaga M.D. on 12/21/2024 at 17:04
[2024-12-21 12:23] LABS: Estimated Glomerular Filt Rate > 60 mL/min (>60)
== END ==
LOC: CT 11:46
PROVIDERS: PCP Family Medicine; Referring Provider Family Medicine; Visit Provider Family Medicine
DX: R10.30 Lower abdominal pain, unspecified (principal); R74.8 Abnormal levels of other serum enzymes; R93.89 Abnormal findings on diagnostic imaging of other specified body structures
CPT/HCPCS: 36415; 74177; 82565; Q9967

== ENCOUNTER 2024-12-26 12:59 | Emergency (ER) | payer MEDICARE, OTHER, SELFPAY ==
[2024-12-26] VITALS (9 sets, daily range): BP systolic 105–131; BP diastolic 57–62; PULSE 61–74; RESP 11–22; TEMP 36.6; O2SAT 97–100; BMI 19.9
--- NOTE | 2024-12-26 13:22 | DI.RAD.S_ITS ---
PROCEDURE: XR CHEST 1V INDICATIONS: right side chest pain TECHNIQUE: One view of the chest was acquired. COMPARISON: [facility], [place], XR CHEST 2V, 11/12/2021, 16:13. [facility], [place], CHEST 1 VIEW, 04/20/2016, 14:00. FINDINGS: Surgical changes and devices: None. Lungs and pleura: Lungs are clear. No pleural effusions or pneumothorax. Mediastinum: Mediastinal contours appear normal. Heart size is normal. Bones and chest wall: No suspicious bony lesions. Overlying soft tissues appear unremarkable. IMPRESSION: No acute cardiopulmonary abnormality is seen. Dictated by: Aydin Arriaga M.D. on 12/26/2024 at 14:11 Approved by: Aydin Arriaga M.D. on 12/26/2024 at 14:11
--- NOTE | 2024-12-26 13:27 | ED.CHESTPAIN ---
HPI - Chest Pain General Chief Complaint: Chest Pain Stated Complaint: RT side chest pain; radiated to center this pm Time Seen by Provider: 12/26/24 13:21 Source: patient Mode of arrival: Ambulatory Limitations: no limitations History of Present Illness HPI narrative: 79-year-old history presents with right-sided chest pain that has been bothering her the last at least 24 hours. She has had 2 normal bowel movements that seemed to help, in December [address] scan of the abdomen had an abnormality that she has her somewhat anxious regarding follow up she thinks this may simply be more reflux. She did go for a walk this morning and this did not make her symptoms worse. She wants to make sure that this is not related to her heart and comes in for further evaluation today. 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 Related Data Home Medications ?Medication ?Instructions ?Recorded ?Confirmed cholecalciferol (vitamin D3) 25 25 mcg PO DAILY 09/11/20 12/14/24 mcg (1,000 unit) capsule levothyroxine 75 mcg capsule 75 mcg PO DAILY 09/11/20 12/14/24 multivitamin 1 tab PO DAILY 09/11/20 12/14/24 omega-3 fatty acids 1,000 mg 1,000 mg PO DAILY 09/11/20 12/14/24 capsule (Fish Oil Concentrate) onabotulinumtoxinA 100 unit 200 unit IM ONCE 09/11/20 12/14/24 solution for injection vitamins A,C,Z-gsor-jmezyb 4,296 1 cap PO BID 09/11/20 12/14/24 mcg-226 mg-90 mg capsule (ICaps AREDS) Saccharomyces boulardii 250 mg 250 mg PO BID 12/14/24 12/14/24 capsule (Daily Probiotic (S. boulardii)) docusate sodium 100 mg capsule 100 mg PO DAILY 12/14/24 12/14/24 Previous Rx's ?Medication ?Instructions ?Recorded CMP Estriol vaginal cream 0.2% See Rx Instructions .Route 12/27/23 .COMPLEX #30 grams Allergies Allergy/AdvReac Type Severity Reaction Status Date / Time povidone-iodine (From Allergy Mild Verified 12/14/24 14:02 Betadine) Patient History Medical History (Updated 12/26/24 @ 16:46 by Ailyn Sheikh MD) Primary osteoarthritis of both knees Primary osteoarthritis of both hips Dysphonia History of trigger finger Hypothyroidism Spasmodic dysphonia Surgical History History of lateral meniscus repair of right knee History of thyroid surgery Hx of rotator cuff surgery Family History Father Heart disease Gallstones Mother Heart disease Social History marital status: unknown household members: none occupational status: previously employed Smoking Status: Never smoker alcohol intake: never substance use type: does not use Smoking Status: Never smoker Exam Initial Vital Signs Initial Vital Signs: Vital Signs Temperature 98 F 12/26/24 13:15 Pulse Rate 74 12/26/24 13:15 Respiratory Rate 20 12/26/24 13:15 Blood Pressure 131/62 12/26/24 13:15 Pulse Oximetry 100 12/26/24 13:15 Oxygen Delivery Method Room Air 12/26/24 13:15 Course Orders Ordered: ED Orders 12/26/24 13:22 XR chest 1V Stat 12/26/24 13:25 EKG-12 Lead Stat 12/26/24 13:35 Complete Blood Count AUTO DIFF Stat Comprehensive Metabolic Panel Stat Troponin I Stat 12/26/24 15:33 Troponin I Stat Vital Signs Vital signs: Vital Signs - 8 hr 12/26/24 13:15 12/26/24 13:33 12/26/24 14:00 Temperature 98 F Pulse Rate 74 65 Respiratory Rate 20 14 Blood Pressure 131/62 105/58 L Pulse Oximetry 100 100 Oxygen Delivery Method Room Air 12/26/24 14:00 12/26/24 14:30 12/26/24 14:30 Temperature Pulse Rate 65 65 Respiratory Rate 20 20 Blood Pressure 127/60 Pulse Oximetry 97 97 Oxygen Delivery Method 12/26/24 14:59 12/26/24 14:59 12/26/24 15:00 Temperature Pulse Rate 61 Respiratory Rate 15 Blood Pressure 124/60 117/57 L Pulse Oximetry 100 Oxygen Delivery Method 12/26/24 15:00 Temperature Pulse Rate 65 Respiratory Rate 11 L Blood Pressure Pulse Oximetry 100 Oxygen Delivery Method MDM - Chest Pain Lab Data 12/26/24 13:35 12/26/24 13:35 Labs: Lab Results 12/26/24 12/26/24 Range/Units 13:35 15:33 WBC 6.0 (4.5-11.0) X10^3/uL RBC 3.93 L (4.0-5.2) X10^6/uL Hgb 12.5 (12.0-16.0) g/dL Hct 36.7 (36-46) % MCV 93.4 (80-100) fL MCH 31.9 (26-34) PG MCHC 34.1 (30-36) % RDW 14.9 H (11.6-14.8) % Plt Count 164 (150-400) X10^3/uL Neut % (Auto) 79.9 H (50-75) % Lymph % (Auto) 9.6 L (25-40) % [place] % (Auto) 9.5 (3-14) % Eos % (Auto) 0.4 L (2-4) % Baso % (Auto) 0.6 (0-2) % Neut # (Auto) 4800 (0015-3217) /uL Lymph # (Auto) 600 L (7923-4437) /uL [place] # (Auto) 600 (0-900) /uL Eos # (Auto) 0 (0-450) /uL Baso # (Auto) 0 (0-100) /uL Sodium 133 L (137-145) mmol/L Potassium 4.1 (3.4-5.1) mmol/L Chloride 97 L (98-107) mmol/L Carbon Dioxide 29 (22-32) mmol/L BUN 17 (7-17) mg/dL Creatinine 0.62 (0.52-1.04) mg/dL Estimated GFR > 60 (>60) mL/min BUN/Creatinine Ratio 27.4 H (6-22) Glucose 104 H (70-99) mg/dL Calcium 9.0 (8.4-10.2) mg/dL Total Bilirubin 1.1 (0.2-1.3) mg/dL AST 40 H (14-36) IU/L ALT 23 (<35) IU/L Alkaline Phosphatase 86 (38-126) U/L Troponin I < 0.012 < 0.012 (0.01-0.034) ng/mL Total Protein 7.5 (6.3-8.2) g/dL Albumin 4.6 (3.5-5.0) g/dL Globulin 2.9 (1.7-4.1) g/dL Albumin/Globulin Ratio 1.6 (1.0-2.8) MDM Narrative Medical decision making narrative: CC: Right-sided upper abdominal posterior chest, chest pain Complicating co-morbidities: Hypothyroidism, recently with a abnormality on CT scan loculated fluid collection along the right side of the liver measuring 5.4 x 1.6 cm. Findings are could represent early pseudomyxoma peritoniti, but would have an atypical appearance. This could also be post inflammatory. Short term follow up (3 months) should be considered to ensure resolution. Data collected from: patient Medical records reviewed: CT scan from December 21 is noted above Differential considered: Right lower lobe pneumonia, musculoskeletal abnormality, reflux, hepatic abnormality, perihepatic abscess, shingles Exam documented above, pertinent findings include: Spastic dysphonia, remainder of exam is benign, pain is not reproduced with palpation along the sternum, chest, no skin changes to suggest developing zoster, no upper abdominal pain reproduces the pain Lab Test results independently reviewed as above. Pertinent findings: CBC is unremarkable Metabolic panel is reassuring 1st and 2nd troponins are undetectable Independently reviewed EKG: Sinus rhythm at a rate of 66 no acute ischemic changes Imaging studies independently reviewed: Chest x-ray is within normal limits, no pathology to explain her pain is identified Discussion: 79-year-old woman with right-sided chest pain and increasing concern knowing she recently had the abnormal CT scan. She also notes she has been doing some increased exercise. It is not associated with cough, shortness for breath, abdominal pain or fevers. X-ray is unremarkable, CT scan of the abdomen from December 21 is reviewed small fluid collection on the lateral aspect of the liver in light of completely normal labs and no sign of infection does not seem like a source of her pain today. There was no evidence of other infection, acute coronary syndrome, pneumothorax or reasons that she would need further evaluation or hospitalization. All of these issues reviewed with the patient in detail. Questions are answered and she is safe for discharge Discharge Plan Departure Patient Disposition: Home Clinical Impression: Acute chest wall pain Instructions: DI for Atypical Chest Pain Activity Restrictions/Additional Instructions: Thank you for coming in today Your workup was quite reassuring. I see no sign of pneumonia, pneumothorax, other infection, shingles, heart attack or heart attack like syndrome. I suspect that that is sensation that your experiencing over in the right side of your chest is likely musculoskeletal in nature. I think it is appropriate to simply watch and wait at this point. If you get worse, your body will tell us where we need to look next. If you find that you are getting worse or develop any new symptoms, please feel free to return to the emergency department for further evaluation. Prescriptions: No Action CMP Estriol vaginal cream 0.2% See Rx Instructions .ROUTE .COMPLEX Qty: 30 3RF Rx Instructions: Apply 1-2mg in vagina at bedtime 3 times per week.; levothyroxine 75 mcg capsule 75 mcg PO DAILY cholecalciferol (vitamin D3) 25 mcg (1,000 unit) capsule 25 mcg PO DAILY onabotulinumtoxinA 100 unit recon soln 200 unit IM ONCE omega-3 fatty acids [Fish Oil Concentrate] 1,000 mg capsule 1,000 mg PO DAILY ICaps AREDS 14,320-226-200 pcgs-ih-shou capsule 1 cap PO BID multivitamin Tablet 1 tab PO DAILY docusate sodium 100 mg capsule 100 mg PO DAILY Saccharomyces boulardii [Daily Probiotic (S. boulardii)] 250 mg capsule 250 mg PO BID Referrals: Anna Lockwood MD [Primary Care Provider, Family Practice] Stand Alone Forms: Patient Portal/API
--- NOTE | 2024-12-26 13:33 | EKG_ITS ---
[address] [address] Test Date: 2024-12-26 Pat Name: Arlette Lim Department: Room: Gender: Female [employer] Mechanical Engineer: JESSICA : 1945 Requested By: Order Number: [id number] Reading MD: Omero Mcconnell MD Measurements Intervals [place] Rate: 66 P: 70 ND: 146 QRS: 12 QRSD: 82 T: 72 QT: 398 QTc: 417 Interpretive Statements Normal sinus rhythm Minimal voltage criteria for LVH, may be normal variant ( Traer product ) Anteroseptal infarct , age undetermined Electronically Signed On 12-26-2024 13:38:17 PDT by Omero Mcconnell MD
[2024-12-26 13:47] LABS: Add Manual Diff / Slide Review NO; Hematocrit 36.7 % (36-46); Hemoglobin 12.5 g/dL (12.0-16.0); Lymphocytes Absolute Auto 600 /uL (1100-4500); Mean Corpuscular HGB Conc 34.1 % (30-36); Mean Corpuscular Hemoglobin 31.9 PG (26-34); Mean Corpuscular Volume 93.4 fL (80-100); Platelet Count 164 X10^3/uL (150-400)
[2024-12-26 13:58] LABS: Alanine Aminotransferase 23 IU/L (<35); Albumin 4.6 g/dL (3.5-5.0); Albumin Globulin Ratio 1.6 (1.0-2.8); Alkaline Phosphatase 86 U/L (38-126); Blood Urea Nitrogen 17 mg/dL (7-17); Calcium 9.0 mg/dL (8.4-10.2); Carbon Dioxide 29 mmol/L (22-32); Chloride 97 mmol/L (98-107); Estimated Glomerular Filt Rate > 60 mL/min (>60); Globulin 2.9 g/dL (1.7-4.1); Glucose 104 mg/dL (70-99); HEMOLYSIS < 15 (0-50); Potassium 4.1 mmol/L (3.4-5.1); Sodium 133 mmol/L (137-145); Total Protein 7.5 g/dL (6.3-8.2)
[2024-12-26 14:10] LABS: Troponin I < 0.012 ng/mL (0.01-0.034)
[2024-12-26 16:04] LABS: Troponin I < 0.012 ng/mL (0.01-0.034)
== END 2024-12-26 16:58 | disposition home or self-care (01) ==
PROVIDERS: Emergency Provider Emergency Medicine; PCP Family Medicine
DX: R07.89 Other chest pain (principal); R93.5 Abnormal findings on diagnostic imaging of other abdominal regions, including retroperitoneum; E03.9 Hypothyroidism, unspecified
CPT/HCPCS: 36415; 71045; 80053; 84484; 85025; 93005; 93010; 99283; 99284

== ENCOUNTER → 2025-03-22 12:36 | Outpatient (CLI) | payer MEDICARE, OTHER, SELFPAY ==
--- NOTE | 2025-03-22 12:38 | DI.ECHO.S_ITS ---
[facility] : : [id number] : [place] : : [id number] : : Phone: [phone] Echocardiogram Report + + :Name: NEEL QUIROGA Study Date: 03/22/2025 Height: 64 in : :[facility] ReadingLocation: Weight: 118 lb : : Gender: Female BSA: 1.6 m2 : :: 1945 Age: 79 yrs BP: 123/65 mmHg: :Reason For Study: NONRHEUMATIC MITRAL VALVE REGURGITATION : :Ordering Physician: ARTURO, : :RYANNE Performed By: Josh Wilson : :Referring: RYANNE MORRIS : + + Interpretation Summary The study quality was technically difficult. The ejection fraction is estimated to be 60-65%. Diastolic parameters suggest probable normal left ventricular diastolic function and normal filling pressures. The right ventricle grossly appears normal in size with probable normal systolic function. There is mild mitral regurgitation. There is mild aortic regurgitation. Pulmonary artery pressures cannot be estimated because of the lack of a measurable TR jet velocity but the IVC suggests a CVP of around 3 mmHg. Procedure: A two-dimensional transthoracic echocardiogram with color flow and Doppler was performed. The study quality was technically difficult. Comparison is made with the echocardiogram of 05/11/2023. The patient was in normal sinus rhythm during the exam. Left Ventricle: The left ventricle is normal in size. There is normal left ventricular wall thickness. There is no ventricular septal defect visualized. The ejection fraction is estimated to be 60-65%. There are no focal wall motion abnormalities. Diastolic parameters suggest probable normal left ventricular diastolic function and normal filling pressures. Right Ventricle: The right ventricle grossly appears normal in size with probable normal systolic function. Atria: The left atrium grossly appears normal in size. The right atrium grossly appears normal in size. There is no Doppler evidence for an interatrial shunt. Mitral Valve: The mitral valve leaflets appear mildly thickened. There is mild mitral regurgitation. Aortic Valve: The aortic valve is trileaflet. The aortic valve opens well. There is no aortic valve stenosis. There is mild aortic regurgitation. Tricuspid Valve: The tricuspid valve is not well visualized, but is grossly normal. There is a trace or physiologic amount of tricuspid regurgitation. Pulmonary artery pressures cannot be estimated because of the lack of a measurable TR jet velocity but the IVC suggests a CVP of around 3 mmHg. Pulmonic Valve: The pulmonic valve is not well visualized. There is no pulmonic valvular regurgitation. Great Vessels: The aortic root is normal size. The dimensions of the ascending aorta are normal. The pulmonary artery is normal size. The IVC is of normal diameter and collapses greater than 50% with a sniff. This suggests a low right atrial pressure of 3 mm Hg. Pericardium/ Pleura There is no pericardial effusion. There is no pleural effusion. MMode/2D Measurements & Calculations LVIDd: 4.4 cm LVOT diam: 1.8 cm LVIDs: 3.1 cm Ao root diam: 2.9 cm FS: 28.7 % Ao Arch Diam (Prox Trans): 1.9 cm EPSS: 0.75 cm IVSd: 0.75 cm LVPWd: 0.83 cm LV gonzalez. diameter/BSA (cm/m^2): 2.8 LV sys. diameter/BSA (cm/m^2): 2.0 LA A2 area: 8.5 cm2 RA long axis: 2.8 cm LA A4 area: 11.9 cm2 RA area: 8.4 cm2 LA length (vol): 4.2 cm RA vol: 21.4 ml LA vol: 20.4 ml RA : 13.7 ml/m2 LA vol index: 13.1 ml/m2 IVC diam: 1.9 cm TAPSE: 2.3 cm Doppler Measurements & Calculations Ao V2 max: 118.5 cm/sec LVOT Max Fabio: 89.3 cm/sec Ao V2 mean: 87.7 cm/sec LV V1 max P.2 mmHg Ao max P.6 mmHg LV V1 VTI: 19.9 cm Ao mean P.3 mmHg ELIZABETH(I,D): 1.9 cm2 Ao V2 VTI: 27.7 cm ELIZABETH(V,D): 2.0 cm2 sev ratio: 0.72 ELIZABETH indexed to BSA (cm^2/m^2): 1.2 MV E max fabio: 68.8 cm/sec PA V2 max: 93.5 cm/sec MV A max fabio: 57.3 cm/sec PA V2 mean: 67.5 cm/sec MV E/A: 1.2 PA mean P.0 mmHg Med Peak E' Fabio: 6.4 cm/sec PA pr(Accel): 8.8 mmHg E/E' med: 10.7 Lat Peak E' Fabio: 6.9 cm/sec E/E' lat: 10.0 E/e' average: 10.3 MV dec time: 0.17 sec SV(LVOT): 51.7 ml Reading Physician:01:50 PM
== END ==
LOC: ECHO 12:38
PROVIDERS: PCP Family Medicine; Referring Provider Family Medicine; Visit Provider Family Medicine
DX: I08.0 Rheumatic disorders of both mitral and aortic valves (principal)
CPT/HCPCS: 93306

== ENCOUNTER → 2025-03-26 12:26 | Outpatient (CLI) | payer MEDICARE, OTHER, SELFPAY ==
--- NOTE | 2025-03-26 12:27 | DI.CT.S_ITS ---
PROCEDURE: CT ABDOMEN PELVIS W CON INDICATIONS: LEQ abdominal pain TECHNIQUE: After the administration of intravenous contrast, axial sections acquired from the lung bases to the pubic symphysis. Coronal and sagittal reformats were performed. For radiation dose reduction, the following was used: automated exposure control, adjustment of mA and/or kV according to patient size. COMPARISON: [facility], CT, CT ABDOMEN PELVIS W CON, 12/21/2024, 12:48. FINDINGS: Image quality: Diagnostic. Lower Chest: No significant findings. ABDOMEN: Liver: No solid mass. Gallbladder: No radiopaque gallstones or wall thickening. Biliary ducts: No biliary dilation. Pancreas: No ductal dilation. Spleen: Size is within normal limits. Adrenal Glands: No adrenal nodules. Kidneys and Ureters: No hydronephrosis. No solid mass. No complex renal cystic lesion which requires follow up. Stomach and Bowel: Normal colonic caliber, without significant wall thickening. The appendix is normal Peritoneum: Slightly more prominent fluid collection seen in the right inferior perihepatic region extending in the right paracolic gutter, measuring 4.4 x 2 cm at this time compared to 3.7 x 1.74 cm previously. Ventral Wall: No significant ventral hernia. Abdominal Nodes: No retroperitoneal or mesenteric adenopathy by size criteria. Vessels: Aorta and inferior vena cava are normal in size. PELVIS: Pelvic Organs: Stable thickening of the endometrium. No new adnexal mass. Bladder: No bladder wall thickening, accounting for underdistention. Pelvic Nodes: No enlarged lymph nodes. Miscellaneous: No inguinal hernias are seen. Bones: No aggressive osseous abnormality. IMPRESSION: 1. There has been slight enlargement of the fluid collection in the right mid abdomen laterally which appears simple. The possibility of developing peritoneal tumor could be further assessed with MRI. 2. No definite acute intra-abdominal abnormality otherwise. 3. Persistent endometrial thickening. Dictated by: Yeison Light M.D. on 03/26/2025 at 19:08 Approved by: Yeison Light M.D. on 03/26/2025 at 19:18
== END ==
PROVIDERS: PCP Family Medicine; Referring Provider Family Medicine; Visit Provider Family Medicine
DX: R93.89 Abnormal findings on diagnostic imaging of other specified body structures (principal); R74.8 Abnormal levels of other serum enzymes; K76.89 Other specified diseases of liver; R10.32 Left lower quadrant pain
CPT/HCPCS: 74177; Q9967

== ENCOUNTER → 2025-04-11 12:43 | Outpatient (CLI) | payer MEDICARE, OTHER, SELFPAY ==
--- NOTE | 2025-04-11 12:46 | DI.MRI.S_ITS ---
PROCEDURE: MR ABDOMEN WO/W CON INDICATIONS: LT LQ pain; fluid RT LAT ABD; CT report f/u TECHNIQUE: Coronal HASTE, axial 2D FLASH in- and zoz-vv-orzed; axial breath-hold T2 FSE. Dynamic axial VIBE during the administration of contrast; post-contrast coronal VIBE or 2D FLASH with fat saturation from the hepatic dome to the iliac crests. Optional diffusion weighted imaging and ADC may be performed. COMPARISON: [facility], CT, CT ABDOMEN PELVIS W CON, 03/26/2025, 13:45. 12/21/2024 FINDINGS: Image quality: Diagnostic Lower chest: Unremarkable lung bases Liver: No suspicious focal enhancing lesion Gallbladder and biliary system: Unremarkable, nondilated Pancreas: No ductal dilation Spleen: Nonenlarged Adrenals: No significant nodules Kidneys: No solid renal mass or hydronephrosis. Vessels and lymph nodes: No abdominal aortic aneurysm. The main portal vein appears patent. No enlarged lymph nodes by size criteria Bowel and peritoneum: No bowel obstruction. Fluid again seen adjacent to the inferior tip of the liver measuring 4.3 x 2.2 cm. This was seen dating back to December 2024. No rim enhancement. No enhancing nodule. Body wall: Unremarkable Bones: Nonspecific heterogeneous marrow signal, which may be senescent. IMPRESSION: Similar fluid adjacent to the inferior tip of the liver, without thickened enhancing wall or nodular soft tissue nodule Etiology is uncertain. Follow-up imaging versus sampling may be obtained at clinical discretion No specific MR findings for disseminated malignancy in the abdomen otherwise. Dictated by: Ritesh Urbina M.D. on 04/11/2025 at 13:49 Approved by: Ritesh Urbina M.D. on 04/11/2025 at 13:56
== END ==
PROVIDERS: PCP Family Medicine; Referring Provider Family Medicine; Visit Provider Family Medicine
DX: R18.8 Other ascites (principal); R10.32 Left lower quadrant pain
CPT/HCPCS: 74183; A9579

== ENCOUNTER → 2025-05-30 | Outpatient (CLI) | payer MEDICARE, OTHER, SELFPAY ==
--- NOTE | 2025-05-30 11:08 | DI.MG.S_ITS ---
MM screening mammo BI: 05/30/2025. BI-RADS: 1 CLINICAL: 79-year old female for bilateral screening mammogram. Tyrer-Cuzick lifetime risk of 2.8%. No personal or first-degree family history of breast cancer. PRIOR EXAMS: 05/15/2024, 04/13/2023, 08/05/2018, 05/28/2017. MAMMOGRAPHY TECHNIQUE: 2D and 3D (tomosynthesis) digital mammographic views obtained, with additional images as needed for full coverage. Current study was also evaluated with a Computer Aided Detection (CAD) system. DENSITY C. The breasts are heterogeneously dense, which may obscure small masses. MAMMOGRAPHY FINDINGS Bilateral: No suspicious mass, asymmetry, microcalcification, or other abnormality seen. IMPRESSION: * No evidence of malignancy. RECOMMENDATIONS Bilateral * Annual screening mammography. OVERALL ASSESSMENT CATEGORY BI-RADS-1: Negative. The [employer] recommends annual screening mammography beginning at age 40 for women with average risk of breast cancer. ELECTRONICALLY SIGNED: Caity Hays M.D. on 06/03/2025 at 01:03:30 AM PT Interpreting Station ID: [id number]
== END ==
LOC: MAMMO 11:07
PROVIDERS: PCP Family Medicine; Referring Provider Family Medicine; Visit Provider Family Medicine
DX: Z12.31 Encounter for screening mammogram for malignant neoplasm of breast (principal); R92.333 Mammographic heterogeneous density, bilateral breasts
CPT/HCPCS: 77063; 77067